=== PATIENT | female | born 1975 | race Caucasian/White ===

== ENCOUNTER 2018-04-06 23:21 | Emergency (ER) | payer MEDICAID ==
[2018-04-07 04:28] LABS: ADD MAN DIFF? NO
[2018-04-07 04:33] LABS: BASOPHILS % 0.2 % (0.0-2.0); EOSINOPHILS # 0.1 10^3/ul (0.0-0.5); EOSINOPHILS % 1.2 % (0.0-7.0); HEMATOCRIT 39.5 % (37.0-47.0); HEMOGLOBIN 12.8 g/dl (12.0-16.0); LYMPHOCYTES # 2.8 10^3/ul (0.8-2.9); LYMPHOCYTES % 25.6 % (15.0-51.0); MEAN CORPUSCULAR HEMOGLOBIN 27.4 pg (29.0-33.0); MEAN CORPUSCULAR HGB CONC 32.4 g/dl (32.0-37.0); MEAN CORPUSCULAR VOLUME 84.6 fl (82.0-101.0); MEAN PLATELET VOLUME 9.4 fl (7.4-10.4); MONOCYTE # 0.7 10^3/ul (0.3-0.9); MONOCYTES % 6.6 % (0.0-11.0); NEUTROPHIL # 7.2 10^3/ul (1.6-7.5); PLATELET COUNT 280 10^3/UL (140-415); RED BLOOD COUNT 4.67 10^6/ul (4.20-5.40); RED CELL DISTRIBUTION WIDTH 13.9 % (11.5-14.5)
[2018-04-07 04:33] LABS: WHITE BLOOD COUNT 10.9 10^3/ul (4.8-10.8)
[2018-04-07 04:37] LABS: ADD UMIC YES; UR ASCORBIC ACID NEGATIVE (NEGATIVE); UR BACTERIA FEW /HPF (NONE SEEN); UR BILIRUBIN (Dip) NEGATIVE (NEGATIVE); UR BLOOD (Dip) NEGATIVE (NEGATIVE); UR CLARITY CLOUDY (CLEAR); UR COLOR YELLOW (YELLOW); UR GLUCOSE (Dip) NEGATIVE (NEGATIVE); UR KETONES (Dip) NEGATIVE (NEGATIVE); UR LEUKOCYTE ESTERASE (Dip) 1+ Leu/ul (NEGATIVE); UR MUCUS FEW /HPF (NONE SEEN); UR NITRITE (Dip) POSITIVE (NEGATIVE); UR RBC 1 /HPF (0-5); UR SPECIFIC GRAVITY (Dip) 1.019 (1.003-1.030); UR SQUAMOUS EPITHELIAL CELL FEW /HPF (FEW); UR TOTAL PROTEIN (Dip) NEGATIVE (NEGATIVE); UR UROBILINOGEN (Dip) NEGATIVE (NEGATIVE); UR WBC 10 /HPF (0-5)
[2018-04-07 04:45] LABS: ALANINE AMINOTRANSFERASE 22 IU/L (13-69); ALBUMIN 4.2 g/dl (3.3-4.9); ALBUMIN/GLOBULIN RATIO 1.07; ALKALINE PHOSPHATASE 85 IU/L (42-121); ANION GAP 11 (5-13); ASPARTATE AMINO TRANSFERASE 22 IU/L (15-46); BILIRUBIN,INDIRECT 0.2 mg/dl (0-1.1); BILIRUBIN,TOTAL 0.2 mg/dl (0.2-1.3); BLOOD UREA NITROGEN 11 mg/dl (7-20); CARBON DIOXIDE 24 mmol/L (21-31); CHLORIDE 110 mmol/L (97-110); CREATININE 0.56 mg/dl (0.44-1.00); Estimated GFR > 60 mL/min (>60); GLUCOSE 123 mg/dl (70-220); LIPASE 59 U/L (23-300); POTASSIUM 3.5 mmol/L (3.5-5.1); SODIUM 145 mmol/L (135-144); TOTAL PROTEIN 8.1 g/dl (6.1-8.1)
== END 2018-04-07 05:26 | disposition home or self-care (01) ==
LOC: FTE 23:21
DX: N12 Tubulo-interstitial nephritis, not specified as acute or chronic (principal); M54.5 Low back pain
CPT/HCPCS: 36415; 74176; 80053; 81001; 81025; 83690; 85025; 99284-25

== ENCOUNTER 2018-09-26 20:50 | Emergency (ER) | payer MEDICAID ==
[2018-09-27 01:26] LABS: ADD MAN DIFF? NO
[2018-09-27 01:28] LABS: BASOPHILS % 0.3 % (0.0-2.0); EOSINOPHILS # 0.1 10^3/ul (0.0-0.5); EOSINOPHILS % 1.2 % (0.0-7.0); HEMATOCRIT 34.9 % (37.0-47.0); HEMOGLOBIN 11.6 g/dl (12.0-16.0); MEAN CORPUSCULAR HEMOGLOBIN 27.7 pg (29.0-33.0); MEAN CORPUSCULAR HGB CONC 33.2 g/dl (32.0-37.0); MEAN CORPUSCULAR VOLUME 83.3 fl (82.0-101.0); MEAN PLATELET VOLUME 9.7 fl (7.4-10.4); MONOCYTE # 0.5 10^3/ul (0.3-0.9); MONOCYTES % 6.9 % (0.0-11.0); NEUTROPHIL # 4.9 10^3/ul (1.6-7.5); NEUTROPHILS % 65.3 % (39.0-77.0); PLATELET COUNT 241 10^3/UL (140-415); RED BLOOD COUNT 4.19 10^6/ul (4.20-5.40); RED CELL DISTRIBUTION WIDTH 14.1 % (11.5-14.5)
[2018-09-27 01:28] LABS: WHITE BLOOD COUNT 7.5 10^3/ul (4.8-10.8)
[2018-09-27 01:37] LABS: ADD UMIC YES; UR ASCORBIC ACID NEGATIVE (NEGATIVE); UR BACTERIA FEW /HPF (NONE SEEN); UR BILIRUBIN (Dip) NEGATIVE (NEGATIVE); UR BLOOD (Dip) NEGATIVE (NEGATIVE); UR CLARITY CLOUDY (CLEAR); UR COLOR YELLOW (YELLOW); UR GLUCOSE (Dip) NEGATIVE (NEGATIVE); UR KETONES (Dip) 1+ mg/dL (NEGATIVE); UR LEUKOCYTE ESTERASE (Dip) NEGATIVE Leu/ul (NEGATIVE); UR MUCUS FEW /HPF (NONE SEEN); UR NITRITE (Dip) NEGATIVE (NEGATIVE); UR RBC 1 /HPF (0-5); UR SPECIFIC GRAVITY (Dip) 1.012 (1.003-1.030); UR SQUAMOUS EPITHELIAL CELL MODERATE /HPF (FEW); UR TOTAL PROTEIN (Dip) NEGATIVE (NEGATIVE); UR UROBILINOGEN (Dip) NEGATIVE (NEGATIVE); UR WBC 2 /HPF (0-5)
[2018-09-27 01:49] LABS: ALANINE AMINOTRANSFERASE 9 IU/L (13-69); ALBUMIN 3.6 g/dl (3.3-4.9); ALBUMIN/GLOBULIN RATIO 0.97; ALKALINE PHOSPHATASE 81 IU/L (42-121); ANION GAP 7 (5-13); ASPARTATE AMINO TRANSFERASE 17 IU/L (15-46); BILIRUBIN,INDIRECT 0.2 mg/dl (0-1.1); BILIRUBIN,TOTAL 0.2 mg/dl (0.2-1.3); BLOOD UREA NITROGEN 6 mg/dl (7-20); CALCIUM 9.4 mg/dl (8.4-10.2); CARBON DIOXIDE 22 mmol/L (21-31); CHLORIDE 110 mmol/L (97-110); CREATININE 0.43 mg/dl (0.44-1.00); Estimated GFR > 60 mL/min (>60); GLUCOSE 79 mg/dl (70-220); POTASSIUM 3.6 mmol/L (3.5-5.1); SODIUM 139 mmol/L (135-144); TOTAL PROTEIN 7.3 g/dl (6.1-8.1)
== END 2018-09-27 03:20 | disposition home or self-care (01) ==
LOC: E/R 20:50
DX: O99.611 Diseases of the digestive system complicating pregnancy, first trimester (principal); K59.00 Constipation, unspecified; R10.2 Pelvic and perineal pain; Z3A.19 19 weeks gestation of pregnancy
CPT/HCPCS: 36415; 76805; 80053; 81001; 84702; 85025; 87086; 99284-25

== ENCOUNTER 2018-12-31 21:05 | Outpatient (CLI) | payer MEDICAID ==
[2019-01-01 00:03] LABS: ADD UMIC YES; UR ASCORBIC ACID NEGATIVE (NEGATIVE); UR BACTERIA MANY /HPF (NONE SEEN); UR BILIRUBIN (Dip) 1+ mg/dL (NEGATIVE); UR BLOOD (Dip) 1+ mg/dL (NEGATIVE); UR CLARITY CLOUDY (CLEAR); UR COLOR AMBER (YELLOW); UR GLUCOSE (Dip) NEGATIVE (NEGATIVE); UR KETONES (Dip) 2+ mg/dL (NEGATIVE); UR LEUKOCYTE ESTERASE (Dip) 2+ Leu/ul (NEGATIVE); UR MUCUS MANY /HPF (NONE SEEN); UR NITRITE (Dip) NEGATIVE (NEGATIVE); UR NONSQUAMOUS EPITHELIAL CELL 1 /HPF (NONE SEEN); UR RBC 13 /HPF (0-5); UR SPECIFIC GRAVITY (Dip) 1.019 (1.003-1.030); UR SQUAMOUS EPITHELIAL CELL MANY /HPF (FEW); UR TOTAL PROTEIN (Dip) 2+ mg/dl (NEGATIVE); UR UROBILINOGEN (Dip) 2+ mg/dL (NEGATIVE); UR WBC 124 /HPF (0-5)
== END 2019-01-01 00:45 | disposition home or self-care (01) ==
LOC: OBT 21:05 → L-D 21:05
DX: O62.9 Abnormality of forces of labor, unspecified (principal); O24.410 Gestational diabetes mellitus in pregnancy, diet controlled; O09.523 Supervision of elderly multigravida, third trimester; Z3A.32 32 weeks gestation of pregnancy
CPT/HCPCS: 76817; 76818; 81001; 82962; 87086

== ENCOUNTER 2019-02-02 17:07 | Outpatient (CLI) | payer MEDICAID | END 2019-02-02 18:50 | disposition home or self-care (01) | LOC: OBT 17:07 → L-D 17:08 → OBT 18:50 | DX: O24.415 Gestational diabetes mellitus in pregnancy, controlled by oral hypoglycemic drugs (principal); O09.523 Supervision of elderly multigravida, third trimester; Z3A.37 37 weeks gestation of pregnancy ==

== ENCOUNTER 2019-02-11 13:26 | Inpatient (IN) | payer MEDICAID ==
[2019-02-11 14:37] LABS: RUPTURE FETAL MEMBRANES POSITIVE (NEGATIVE)
[2019-02-11 17:12] LABS: ADD MAN DIFF? NO
[2019-02-11] MEDS: LACTATED RINGER'S 1,000 ML IV ×3 (17:12→22:15)
[2019-02-11 17:21] LABS: EOSINOPHILS % 0.7 % (0.0-7.0); HEMATOCRIT 32.9 % (37.0-47.0); LYMPHOCYTES % 26.2 % (15.0-51.0); MEAN CORPUSCULAR HEMOGLOBIN 29.1 pg (29.0-33.0); MEAN CORPUSCULAR HGB CONC 33.4 g/dl (32.0-37.0); MEAN PLATELET VOLUME 10.9 fl (7.4-10.4); MONOCYTES % 5.9 % (0.0-11.0); NEUTROPHILS % 66.9 % (39.0-77.0); PLATELET COUNT 181 10^3/UL (140-415); RED BLOOD COUNT 3.78 10^6/ul (4.20-5.40); RED CELL DISTRIBUTION WIDTH 14.1 % (11.5-14.5)
[2019-02-11 17:21] LABS: WHITE BLOOD COUNT 5.9 10^3/ul (4.8-10.8)
[2019-02-11 17:22] LABS: LYMPHOCYTES # 1.6 10^3/ul (0.8-2.9); MONOCYTE # 0.4 10^3/ul (0.3-0.9)
[2019-02-11] MEDS ORDERED: OXYTOCIN 30 UNITS/LR 500 ML IV ×2 (17:30→22:30)
[2019-02-11] MEDS ORDERED: METHYLERGONOVINE 0.2 MG INJ IM ×2 (17:30→22:30)
[2019-02-11] MEDS ORDERED: MISOPROSTOL 200 MCG TAB PR ×2 (17:30→22:30)
[2019-02-11] MEDS ORDERED: CARBOPROST 250 MCG INJ IM ×2 (17:30→22:30)
[2019-02-11 17:41] LABS: INR 0.95; PROTIME 12.8 Sec (11.9-14.9)
[2019-02-11 17:42] LABS: PARTIAL THROMBOPLASTIN TIME 25.9 Sec (23.0-35.0)
[2019-02-11 18:05] LABS: HEPATITIS B SURFACE ANTIGEN NEGATIVE (NEGATIVE)
[2019-02-11] MEDS ORDERED: CITRIC ACID/NA CITRATE 30 ML CUP (18:15)
[2019-02-11] MEDS ORDERED: OXYTOCIN 30 UNITS/LR 500 ML BAG IV (18:17)
[2019-02-11] MEDS ORDERED: EPHEDrine 25 MG/5 ML SYG (18:17)
[2019-02-11] MEDS ORDERED: OXYTOCIN 10 UNIT INJ (18:17)
[2019-02-11] MEDS ORDERED: PHENYLephrine (100 MCG/ML) 10ML SYG (18:17)
[2019-02-11] MEDS ORDERED: morphine SULFATE/PF (10 MG/10 ML) INJ (18:17)
[2019-02-11] MEDS: ONDANSETRON 4 MG INJ IV (18:30)
[2019-02-11] MEDS: CITRIC ACID/NA CITRATE 30 ML CUP PO (18:30)
[2019-02-11] MEDS ORDERED: KETOROLAC 30 MG INJ (18:32)
[2019-02-11] MEDS ORDERED: DEXAMETHASONE 4 MG/ML 1 ML INJ (18:32)
[2019-02-11] MEDS ORDERED: ONDANSETRON 4 MG INJ (18:32)
[2019-02-11] MEDS ORDERED: METOCLOPRAMIDE 10 MG INJ (18:32)
[2019-02-11] MEDS: AZITHROMYCIN 500MG/NS (PMX) 250 ML IV (19:28)
[2019-02-11] MEDS: CEFAZOLIN 2 GM/50 ML (PMX) 50 ML IVPB ×2 (19:29→23:17)
[2019-02-11] MEDS ORDERED: NALOXONE (0.4 MG/ML) INJ IV ×2 (19:30→22:30)
[2019-02-11] MEDS ORDERED: DIPHENHYDRAMINE 50 MG INJ IV (19:30)
[2019-02-11] MEDS ORDERED: KETOROLAC 30 MG INJ IV (19:30)
[2019-02-11] MEDS ORDERED: NALBUPHINE HCL (10 MG/1 ML) INJ IV ×2 (19:30→22:30)
[2019-02-11] MEDS ORDERED: morphine 2 MG INJ IV ×4 (19:30→22:30)
[2019-02-11] MEDS ORDERED: ACETAMINOPHEN 500 MG TAB PO ×2 (19:30→22:30)
[2019-02-11] MEDS ORDERED: HYDROCODONE/APAP (5/325) TAB PO ×2 (19:30→22:30)
[2019-02-11] MEDS ORDERED: ONDANSETRON 4 MG INJ IV ×2 (19:30→22:30)
[2019-02-11] MEDS ORDERED: HYDROmorphONE 0.5 MG/0.5 ML SYG IV ×4 (19:30→22:30)
[2019-02-11] MEDS: KETOROLAC 30 MG INJ IV (19:37)
[2019-02-11] MEDS: ACETAMINOPHEN 500 MG TAB PO (20:38)
[2019-02-11] MEDS ORDERED: LANOLIN HPA 1 PKT TOP (22:30)
[2019-02-11] MEDS: SENNA/DOCUSATE NA (8.6MG/50MG) TAB PO (22:30)
[2019-02-12 04:57] LABS: ADD MAN DIFF? NO
[2019-02-12 04:59] LABS: BASOPHILS % 0.1 % (0.0-2.0); HEMATOCRIT 32.5 % (37.0-47.0); HEMOGLOBIN 10.6 g/dl (12.0-16.0); LYMPHOCYTES # 1.4 10^3/ul (0.8-2.9); LYMPHOCYTES % 13.3 % (15.0-51.0); MEAN CORPUSCULAR HEMOGLOBIN 28.5 pg (29.0-33.0); MEAN CORPUSCULAR HGB CONC 32.6 g/dl (32.0-37.0); MEAN CORPUSCULAR VOLUME 87.4 fl (82.0-101.0); MEAN PLATELET VOLUME 10.7 fl (7.4-10.4); MONOCYTE # 0.5 10^3/ul (0.3-0.9); MONOCYTES % 4.8 % (0.0-11.0); NEUTROPHIL # 8.2 10^3/ul (1.6-7.5); NEUTROPHILS % 81.4 % (39.0-77.0); PLATELET COUNT 168 10^3/UL (140-415); RED BLOOD COUNT 3.72 10^6/ul (4.20-5.40); RED CELL DISTRIBUTION WIDTH 14.2 % (11.5-14.5)
[2019-02-12 04:59] LABS: WHITE BLOOD COUNT 10.1 10^3/ul (4.8-10.8)
[2019-02-12] MEDS: CEFAZOLIN 2 GM/50 ML (PMX) 50 ML IVPB ×2 (05:45→15:45)
[2019-02-12] MEDS: CLINDAMYCIN 300 MG CAP PO ×5 (05:45→23:55)
[2019-02-12] MEDS: ACCU-CHEK XX ×4 (07:30→20:38)
[2019-02-12] MEDS: metFORMIN (XR) 500 MG TAB PO ×2 (09:00→21:09)
[2019-02-12] MEDS: SENNA/DOCUSATE NA (8.6MG/50MG) TAB PO ×2 (10:28→20:39)
[2019-02-12] MEDS: BISACODYL 10 MG SUPP PR (10:28)
[2019-02-12] MEDS: KETOROLAC 30 MG INJ IV ×2 (12:01→18:11)
[2019-02-12] MEDS: DIPHENHYDRAMINE 50 MG INJ IV (13:39)
[2019-02-12 15:29] LABS: RAPID PLASMA REAGIN NONREACTIVE (NR)
[2019-02-12] MEDS: IBUPROFEN 800 MG TAB PO (23:02)
[2019-02-13] MEDS: OXYCODONE/ACETAMINOPHEN (5/325) TAB PO (03:09)
[2019-02-13 05:00] LABS: ADD MAN DIFF? NO
[2019-02-13 05:12] LABS: BASOPHILS % 0.3 % (0.0-2.0); EOSINOPHILS # 0.1 10^3/ul (0.0-0.5); EOSINOPHILS % 0.9 % (0.0-7.0); HEMATOCRIT 30.4 % (37.0-47.0); LYMPHOCYTES # 1.9 10^3/ul (0.8-2.9); LYMPHOCYTES % 24.1 % (15.0-51.0); MEAN CORPUSCULAR HGB CONC 32.9 g/dl (32.0-37.0); MEAN CORPUSCULAR VOLUME 88.1 fl (82.0-101.0); MEAN PLATELET VOLUME 10.5 fl (7.4-10.4); MONOCYTE # 0.5 10^3/ul (0.3-0.9); MONOCYTES % 6.6 % (0.0-11.0); NEUTROPHIL # 5.2 10^3/ul (1.6-7.5); NEUTROPHILS % 67.7 % (39.0-77.0); PLATELET COUNT 145 10^3/UL (140-415); RED BLOOD COUNT 3.45 10^6/ul (4.20-5.40); RED CELL DISTRIBUTION WIDTH 14.2 % (11.5-14.5)
[2019-02-13 05:12] LABS: WHITE BLOOD COUNT 7.7 10^3/ul (4.8-10.8)
[2019-02-13] MEDS: ACCU-CHEK XX ×4 (06:00→19:55)
[2019-02-13] MEDS: IBUPROFEN 800 MG TAB PO ×3 (06:25→22:53)
[2019-02-13] MEDS: CLINDAMYCIN 300 MG CAP PO ×4 (06:25→23:48)
[2019-02-13] MEDS: metFORMIN (XR) 500 MG TAB PO ×2 (08:49→21:04)
[2019-02-13] MEDS: SENNA/DOCUSATE NA (8.6MG/50MG) TAB PO ×2 (08:49→21:04)
[2019-02-13] MEDS: BISACODYL 10 MG SUPP PR (08:49)
[2019-02-13] MEDS ORDERED: ACETAMINOPHEN 325 MG TAB PO (12:00)
[2019-02-13] MEDS: HYDROCODONE/APAP (5/325) TAB PO (13:23)
[2019-02-14] MEDS: IBUPROFEN 800 MG TAB PO ×2 (06:05→14:51)
[2019-02-14] MEDS: CLINDAMYCIN 300 MG CAP PO ×2 (06:05→11:39)
[2019-02-14] MEDS: ACCU-CHEK XX ×2 (07:45→12:40)
[2019-02-14] MEDS: metFORMIN (XR) 500 MG TAB PO (09:03)
[2019-02-14] MEDS: SENNA/DOCUSATE NA (8.6MG/50MG) TAB PO (09:03)
[2019-02-14] MEDS: MEASLES,MUMPS,RUBELLA VACCINE INJ SC* (09:04)
[2019-02-14] MEDS: DIPHTH/TET/ACEL PERTUSS (ADULT) 0.5 ML VIAL IM* (11:40)
[2019-02-14] MEDS: HYDROCODONE/APAP (5/325) TAB PO (11:56)
[2019-02-14] MEDS: NA PHOSPHATE/BIPHOS 133 ML ENEMA PR (12:10)
== END 2019-02-14 16:36 | disposition home or self-care (01) | DRG 788 ==
LOC: OBT 13:26 → L-D 13:26 → OBT 14:35 → L-D 14:35 → MS1 22:14
PROVIDERS: Obstetrics & Gynecology
PROC: 10D00Z1 Extraction of Products of Conception, Low, Open Approach (ICD-10-PCS; principal; 2019-02-12)
DX: O34.211 Maternal care for low transverse scar from previous cesarean delivery (principal); O24.429 Gestational diabetes mellitus in childbirth, unspecified control; Z3A.38 38 weeks gestation of pregnancy; Z37.0 Single live birth; Z64.1 Problems related to multiparity
CPT/HCPCS: 76818; 82962; 84112; 85025; 85610; 85730; 86592; 86850; 86900; 86901; 87340; 90715; 99464

== ENCOUNTER 2019-02-21 17:04 | Emergency (ER) | payer MEDICAID ==
[2019-02-21] MEDS ORDERED: SODIUM CHLORIDE 0.9% 1L BAG IV* (17:20)
[2019-02-21 17:29] LABS: ADD MAN DIFF? NO
[2019-02-21 17:36] LABS: BASOPHILS % 0.1 % (0.0-2.0); EOSINOPHILS % 0.3 % (0.0-7.0); HEMATOCRIT 42.7 % (37.0-47.0); HEMOGLOBIN 14.1 g/dl (12.0-16.0); LYMPHOCYTES % 8.6 % (15.0-51.0); MEAN CORPUSCULAR HEMOGLOBIN 28.6 pg (29.0-33.0); MEAN CORPUSCULAR VOLUME 86.6 fl (82.0-101.0); MEAN PLATELET VOLUME 9.3 fl (7.4-10.4); MONOCYTE # 0.7 10^3/ul (0.3-0.9); MONOCYTES % 5.4 % (0.0-11.0); NEUTROPHIL # 10.2 10^3/ul (1.6-7.5); NEUTROPHILS % 84.9 % (39.0-77.0); PLATELET COUNT 242 10^3/UL (140-415); RED BLOOD COUNT 4.93 10^6/ul (4.20-5.40); RED CELL DISTRIBUTION WIDTH 13.6 % (11.5-14.5)
[2019-02-21] MEDS: CEFTRIAXONE 1 GM/50 ML (PMX) 50 ML IVPB (17:52)
[2019-02-21 17:57] LABS: INR 0.96; PROTIME 12.9 Sec (11.9-14.9)
[2019-02-21] MEDS: IBUPROFEN 600 MG TAB PO (17:59)
[2019-02-21] MEDS: ACETAMINOPHEN 325 MG TAB PO (17:59)
[2019-02-21 18:04] LABS: ALANINE AMINOTRANSFERASE 23 IU/L (13-69); ALBUMIN/GLOBULIN RATIO 0.97; ALKALINE PHOSPHATASE 136 IU/L (42-121); ANION GAP 8 (5-13); ASPARTATE AMINO TRANSFERASE 26 IU/L (15-46); BILIRUBIN,INDIRECT 0.5 mg/dl (0-1.1); BILIRUBIN,TOTAL 0.5 mg/dl (0.2-1.3); BLOOD UREA NITROGEN 14 mg/dl (7-20); CARBON DIOXIDE 24 mmol/L (21-31); CHLORIDE 105 mmol/L (97-110); CREATININE 0.69 mg/dl (0.44-1.00); Estimated GFR > 60 mL/min (>60); GLUCOSE 81 mg/dl (70-220); POTASSIUM 3.9 mmol/L (3.5-5.1); SODIUM 137 mmol/L (135-144); TOTAL PROTEIN 8.1 g/dl (6.1-8.1)
[2019-02-21 18:11] LABS: ADD UMIC YES; UR ASCORBIC ACID NEGATIVE (NEGATIVE); UR BACTERIA FEW /HPF (NONE SEEN); UR BILIRUBIN (Dip) NEGATIVE (NEGATIVE); UR BLOOD (Dip) 3+ mg/dL (NEGATIVE); UR CLARITY CLOUDY (CLEAR); UR COLOR AMBER (YELLOW); UR GLUCOSE (Dip) NEGATIVE (NEGATIVE); UR KETONES (Dip) 2+ mg/dL (NEGATIVE); UR LEUKOCYTE ESTERASE (Dip) 3+ Leu/ul (NEGATIVE); UR MUCUS FEW /HPF (NONE SEEN); UR NITRITE (Dip) NEGATIVE (NEGATIVE); UR NONSQUAMOUS EPITHELIAL CELL 2 /HPF (NONE SEEN); UR RBC > 182 /HPF (0-5); UR SQUAMOUS EPITHELIAL CELL MODERATE /HPF (FEW); UR TOTAL PROTEIN (Dip) 2+ mg/dl (NEGATIVE); UR UROBILINOGEN (Dip) NEGATIVE (NEGATIVE); UR WBC 43 /HPF (0-5)
[2019-02-21] MEDS: SODIUM CHLORIDE 0.9% 1L BAG IV* (18:13)
[2019-02-21 18:16] LABS: TROPONIN-I < 0.012 ng/ml (0.000-0.120)
[2019-02-21 20:08] LABS: LACTIC ACID 0.9 mmol/L (0.5-2.0)
== END 2019-02-21 20:04 | disposition home or self-care (01) ==
LOC: E/R 17:04
DX: O86.20 Urinary tract infection following delivery, unspecified (principal); B96.89 Other specified bacterial agents as the cause of diseases classified elsewhere; O24.33 Unspecified pre-existing diabetes mellitus in the puerperium; Z79.84 Long term (current) use of oral hypoglycemic drugs
CPT/HCPCS: 36415; 71045; 80053; 81001; 83605; 84484; 85025; 85610; 85730; 87040-91; 87086; 93005; 96374; 99285-25